=== PATIENT | male | born 1970 | race Caucasian/White ===

== ENCOUNTER 2018-01-27 12:42 | Inpatient (IN) | payer OTHER ==
[2018-01-27] MEDS ORDERED: SODIUM CHLORIDE 0.9% 1,000 ML IV STA (12:48)
[2018-01-27] MEDS ORDERED: ASPIRIN 81 MG PO STA (12:49)
[2018-01-27] MEDS ORDERED: NITROGLYCERIN SL TABS 0.4 MG TAB SUBLINGUAL STA (12:49)
--- NOTE | 2018-01-27 13:00 | ED ---
General Adult HPI - General Source: patient, EMS, RN notes reviewed Mode of arrival: EMS Limitations: no limitations <Js Sanchez - Last Filed: 01/27/18 17:05> <Gallito Lee - Last Filed: 01/28/18 02:33> <Ryan Mcdowell - Last Filed: 01/28/18 06:36> - General Chief complaint: Psychiatric Symptoms Stated complaint: Chest Pain Time Seen by Provider: 01/27/18 12:42 - History of Present Illness Initial comments: This is a 46-year-old male with a history of 22 days of binge drinking at the fifth of liquor a day who was brought in by EMS after he apparently was kicked out of his car by his who is been arguing with he does admit to drinking at least 6 or 7 beers today he states is something wrong with his heart he is having some chest pain and palpitations. He has a cough he states he smokes cigars with cigarettes no prior history of heart disease no lung disease no other complaints. He is unable to quantify or qualify the symptoms he is having at this time. Patient does admit to being suicidal and depressed at this time. Definite plan (Js Sanchez) - Related Data Home Medications Medication Instructions Recorded Confirmed No Known Home Medications 01/27/18 01/27/18 Allergies Allergy/AdvReac Type Severity Reaction Status Date / Time No Known Allergies Allergy Verified 01/27/18 13:31 Review of Systems ROS Other: All systems not noted in ROS Statement are negative. <sJ Sanchez - Last Filed: 01/27/18 17:05> ROS Other: All systems not noted in ROS Statement are negative. <Gallito Lee - Last Filed: 01/28/18 02:33> ROS Other: All systems not noted in ROS Statement are negative. <Ryan Mcdowell - Last Filed: 01/28/18 06:36> ROS Statement: Those systems with pertinent positive or pertinent negative responses have been documented in the HPI. Past Medical History Additional Past Medical History / Comment(s): "enlarged heart," ETOH abuse History of Any Multi-Drug Resistant Organisms: None Reported Past Surgical History: Orthopedic Surgery Past Psychological History: Anxiety, Depression Smoking Status: Current some day smoker Past Alcohol Use History: Abuse, Daily Past Drug Use History: None Reported <Js Sanchez - Last Filed: 01/27/18 17:05> General Exam Limitations: no limitations General appearance: alert, anxious Head exam: Present: atraumatic, normocephalic, normal inspection Eye exam: Present: normal appearance, PERRL, EOMI. Absent: scleral icterus, conjunctival injection, periorbital swelling ENT exam: Present: normal exam, mucous membranes moist Neck exam: Present: normal inspection. Absent: tenderness, meningismus, lymphadenopathy Respiratory exam: Present: normal lung sounds bilaterally. Absent: respiratory distress, wheezes, rales, rhonchi, stridor Cardiovascular Exam: Present: regular rate, normal rhythm, normal heart sounds. Absent: systolic murmur, diastolic murmur, rubs, gallop, clicks GI/Abdominal exam: Present: soft, normal bowel sounds. Absent: distended, tenderness, guarding, rebound, rigid Extremities exam: Present: normal inspection, full ROM, normal capillary refill. Absent: tenderness, pedal edema, joint swelling, calf tenderness Back exam: Present: normal inspection Neurological exam: Present: alert, oriented X3, CN II-XII intact Psychiatric exam: Present: depressed, anxious, suicidal ideation Skin exam: Present: warm, dry, intact, normal color. Absent: rash <Js Sanchez - Last Filed: 01/27/18 17:05> <Gallito Lee - Last Filed: 01/28/18 02:33> <Ryan Mcdowell - Last Filed: 01/28/18 06:36> - General Exam Comments Initial Comments: This is a well-developed well-nourished awake alert oriented 3 male he is anxious with the smell of alcohol conjoiners on his breath (Js Sanchez) Course <Js Sanchez - Last Filed: 01/27/18 17:05> <Gallito Lee - Last Filed: 01/28/18 02:33> <Ryan Mcdowell - Last Filed: 01/28/18 06:36> Vital Signs 01/27/18 01/27/18 01/27/18 12:54 13:02 14:56 Temperature 98.5 F Pulse Rate 83 99 Pulse Rate [ 80 Radiological Technologist ] Respiratory 18 18 Rate Blood Pressure 181/97 131/77 O2 Sat by Pulse 99 97 Oximetry 01/27/18 01/27/18 01/27/18 16:51 17:51 18:35 Temperature Pulse Rate 98 90 90 Pulse Rate [ Radiological Technologist ] Respiratory 18 18 18 Rate Blood Pressure 131/86 123/72 108/75 O2 Sat by Pulse 96 97 95 Oximetry 01/27/18 01/27/18 01/27/18 19:21 20:21 21:13 Temperature Pulse Rate 96 88 93 Pulse Rate [ Radiological Technologist ] Respiratory 18 18 Rate Blood Pressure 126/91 122/67 138/71 O2 Sat by Pulse 99 96 97 Oximetry 01/27/18 01/27/18 01/28/18 22:51 23:51 04:07 Temperature 98.3 F Pulse Rate 90 74 109 H Pulse Rate [ Radiological Technologist ] Respiratory 18 18 Rate Blood Pressure 121/82 140/79 141/90 O2 Sat by Pulse 96 95 96 Oximetry 01/28/18 06:31 Temperature Pulse Rate 87 Pulse Rate [ Radiological Technologist ] Respiratory 20 Rate Blood Pressure 154/88 O2 Sat by Pulse 95 Oximetry Around 8 PM patient complain about the chest pain, EKG was done and troponin was repeated troponin is unremarkable and the EKG is normal sinus ventricular rate is 92 PA interval is 176 QRS duration is 84 QT/QTc is 346/427 review of this EKG does not reveal any STEMI Patient isn't endorsed to Dr. Mcdowell at term 2:34 AM him a he be sober at 5 AM at that point he needs to see EPS (Gallito Lee) - Reevaluation(s) Reevaluation #1: 01/27/18 17:05 The patient will be endorsed to Dr. Lee at our shift change. Patient is pending EPS evaluation after sobriety is attained (Js Sanchez) EKG Findings - EKG Results: EKG: interpreted by ERMD, sinus rhythm (EKG shows sinus rhythm with some sinus arrhythmia the rate was 96. Interval 202 QRS 82 QT since QTC 362/457) <Js Sanchez - Last Filed: 01/27/18 17:05> Medical Decision Making - Lab Data Result diagrams: 01/27/18 13:03 01/27/18 13:03 <Js Sanchez - Last Filed: 01/27/18 17:05> - Lab Data Result diagrams: 01/27/18 13:03 01/27/18 13:03 <Gallito Lee - Last Filed: 01/28/18 02:33> - Lab Data Result diagrams: 01/27/18 13:03 01/27/18 13:03 <Ryan Mcdowell - Last Filed: 01/28/18 06:36> - Medical Decision Making Patient was sent out to me by previous shift physician. Patient is a daily EtOH drinker. He was signed out to me with instructions for EPS evaluation because he said that he was suicidal. Patient also complained earlier that he is having chest pain. He had 2 sets of negative troponin, benign EKG and negative CTA. At this point we have ruled out emergent issues causing chest pain. Patient was cleared by EPS for discharge. He then became severely tachycardic, diaphoretic and tremulous. Patient drinks approximately a fifth of liquor a day. He is currently experiencing EtOH withdrawals. Patient be admitted. He is given Ativan. (Ryan Mcdowell) - Lab Data Lab Results 01/27/18 01/27/18 01/27/18 Range/Units 13:03 13:03 13:03 WBC 4.2 (3.8-10.6) k/uL RBC 4.91 (4.30-5.90) m/uL Hgb 14.5 (13.0-17.5) gm/dL Hct 43.4 (39.0-53.0) % MCV 88.4 (80.0-100.0) fL MCH 29.6 (25.0-35.0) pg MCHC 33.4 (31.0-37.0) g/dL RDW 15.6 H (11.5-15.5) % Plt Count 85 L (150-450) k/uL Neutrophils % 51 % Lymphocytes % 29 % Monocytes % 12 % Eosinophils % 2 % Basophils % 2 % Neutrophils # 2.2 (1.3-7.7) k/uL Lymphocytes # 1.2 (1.0-4.8) k/uL Monocytes # 0.5 (0-1.0) k/uL Eosinophils # 0.1 (0-0.7) k/uL Basophils # 0.1 (0-0.2) k/uL Manual Slide Review Performed PT (9.0-12.0) sec INR (<1.2) APTT (22.0-30.0) sec D-Dimer (<0.60) mg/L FEU Sodium 137 (137-145) mmol/L Potassium 4.1 (3.5-5.1) mmol/L Chloride 101 (98-107) mmol/L Carbon Dioxide 22 (22-30) mmol/L Anion Gap 14 mmol/L BUN 7 L (9-20) mg/dL Creatinine 0.73 (0.66-1.25) mg/dL Est GFR (CKD-EPI)AfAm >90 (>60 ml/min/1.73 sqM) Est GFR (CKD-EPI)NonAf >90 (>60 ml/min/1.73 sqM) Glucose 123 H (74-99) mg/dL Calcium 9.4 (8.4-10.2) mg/dL Magnesium 1.7 (1.6-2.3) mg/dL Total Bilirubin 0.9 (0.2-1.3) mg/dL AST 247 H (17-59) U/L ALT 212 H (21-72) U/L Alkaline Phosphatase 84 (38-126) U/L Total Creatine Kinase 218 H (55-170) U/L CK-MB (CK-2) 1.2 (0.0-2.4) ng/mL CK-MB (CK-2) Rel Index 0.6 Troponin I <0.012 (0.000-0.034) ng/mL Total Protein 7.5 (6.3-8.2) g/dL Albumin 4.5 (3.5-5.0) g/dL TSH 0.691 (0.465-4.680) mIU/L Urine Opiates Screen (NotDetected) Ur Oxycodone Screen (NotDetected) Urine Methadone Screen (NotDetected) Ur Propoxyphene Screen (NotDetected) Ur Barbiturates Screen (NotDetected) U Tricyclic Antidepress (NotDetected) Ur Phencyclidine Scrn (NotDetected) Ur Amphetamines Screen (NotDetected) U Methamphetamines Scrn (NotDetected) U Benzodiazepines Scrn (NotDetected) Urine Cocaine Screen (NotDetected) U Marijuana (THC) Screen (NotDetected) Serum Alcohol 387 mg/dL 01/27/18 01/27/18 01/27/18 Range/Units 13:03 13:03 19:02 WBC (3.8-10.6) k/uL RBC (4.30-5.90) m/uL Hgb (13.0-17.5) gm/dL Hct (39.0-53.0) % MCV (80.0-100.0) fL MCH (25.0-35.0) pg MCHC (31.0-37.0) g/dL RDW (11.5-15.5) % Plt Count (150-450) k/uL Neutrophils % % Lymphocytes % % Monocytes % % Eosinophils % % Basophils % % Neutrophils # (1.3-7.7) k/uL Lymphocytes # (1.0-4.8) k/uL Monocytes # (0-1.0) k/uL Eosinophils # (0-0.7) k/uL Basophils # (0-0.2) k/uL Manual Slide Review PT 9.8 (9.0-12.0) sec INR 1.0 (<1.2) APTT 21.4 L (22.0-30.0) sec D-Dimer 1.46 H (<0.60) mg/L FEU Sodium (137-145) mmol/L Potassium (3.5-5.1) mmol/L Chloride (98-107) mmol/L Carbon Dioxide (22-30) mmol/L Anion Gap mmol/L BUN (9-20) mg/dL Creatinine (0.66-1.25) mg/dL Est GFR (CKD-EPI)AfAm (>60 ml/min/1.73 sqM) Est GFR (CKD-EPI)NonAf (>60 ml/min/1.73 sqM) Glucose (74-99) mg/dL Calcium (8.4-10.2) mg/dL Magnesium (1.6-2.3) mg/dL Total Bilirubin (0.2-1.3) mg/dL AST (17-59) U/L ALT (21-72) U/L Alkaline Phosphatase (38-126) U/L Total Creatine Kinase (55-170) U/L CK-MB (CK-2) (0.0-2.4) ng/mL CK-MB (CK-2) Rel Index Troponin I <0.012 (0.000-0.034) ng/mL Total Protein (6.3-8.2) g/dL Albumin (3.5-5.0) g/dL TSH (0.465-4.680) mIU/L Urine Opiates Screen Not Detected (NotDetected) Ur Oxycodone Screen Not Detected (NotDetected) Urine Methadone Screen Not Detected (NotDetected) Ur Propoxyphene Screen Not Detected (NotDetected) Ur Barbiturates Screen Not Detected (NotDetected) U Tricyclic Antidepress Not Detected (NotDetected) Ur Phencyclidine Scrn Not Detected (NotDetected) Ur Amphetamines Screen Not Detected (NotDetected) U Methamphetamines Scrn Not Detected (NotDetected) U Benzodiazepines Scrn Not Detected (NotDetected) Urine Cocaine Screen Not Detected (NotDetected) U Marijuana (THC) Screen Not Detected (NotDetected) Serum Alcohol mg/dL Disposition <Js Sanchez - Last Filed: 01/27/18 17:05> <Gallito Lee - Last Filed: 01/28/18 02:33> Time of Disposition: 06:36 <Ryan Mcdowell - Last Filed: 01/28/18 06:36> Clinical Impression: Alcohol intoxication, Alcohol withdrawal Disposition: ADMITTED IP TO THIS HOSP Condition: Fair Referrals: None,Stated [Primary Care Provider] - 1-2 days
[2018-01-27 13:23] LABS: Basophils # (A) 0.1 k/uL (0-0.2); Basophils % (A) 2 %; Eosinophils # (A) 0.1 k/uL (0-0.7); Eosinophils % (A) 2 %; HCT 43.4 % (39.0-53.0); HGB 14.5 gm/dL (13.0-17.5); Lymphocytes # (A) 1.2 k/uL (1.0-4.8); Lymphocytes % (A) 29 %; MCH 29.6 pg (25.0-35.0); MCHC 33.4 g/dL (31.0-37.0); MCV 88.4 fL (80.0-100.0); Mean Platelet Volume 6.5; Monocytes # (A) 0.5 k/uL (0-1.0); Monocytes % (A) 12 %; Neutrophils # (A) 2.2 k/uL (1.3-7.7); Neutrophils % (A) 51 %; RBC 4.91 m/uL (4.30-5.90); RDW 15.6 % (11.5-15.5); WBC 4.2 k/uL (3.8-10.6)
[2018-01-27 13:27] LABS: ALT 212 U/L (21-72); AST 247 U/L (17-59); Albumin 4.5 g/dL (3.5-5.0); Alkaline Phosphatase 84 U/L (38-126); Anion Gap 14 mmol/L; Blood Urea Nitrogen 7 mg/dL (9-20); Calcium 9.4 mg/dL (8.4-10.2); Carbon Dioxide 22 mmol/L (22-30); Chloride 101 mmol/L (98-107); Glucose 123 mg/dL (74-99); Magnesium 1.7 mg/dL (1.6-2.3); Potassium 4.1 mmol/L (3.5-5.1); Sodium 137 mmol/L (137-145); Total Bilirubin 0.9 mg/dL (0.2-1.3); Total Protein 7.5 g/dL (6.3-8.2)
--- NOTE | 2018-01-27 13:27 | XR ---
EXAMINATION TYPE: XR chest 2V DATE OF EXAM: 01/27/2018 COMPARISON: NONE HISTORY: Dysrhythmia per order. Chest pain. TECHNIQUE: Frontal and lateral views of the chest are obtained. FINDINGS: There is no focal air space opacity, pleural effusion, or pneumothorax seen. The cardiac silhouette size is within normal limits. The osseous structures are intact. IMPRESSION: No acute cardiopulmonary process.
[2018-01-27 13:33] LABS: Amphetamine Screen,Urine Not Detected (NotDetected); Barbiturate Screen,Urine Not Detected (NotDetected); Benzodiazepines Screen,Urine Not Detected (NotDetected); Cocaine Screen,Urine Not Detected (NotDetected); Methadone Screen, Urine Not Detected (NotDetected); Opiate Screen,Urine Not Detected (NotDetected); Oxycodone Screen, Urine Not Detected (NotDetected); Phencyclidine Screen,Urine Not Detected (NotDetected); Tricyclic Antidepressant,Urine Not Detected (NotDetected); Urn Cannabinoid Scrn Not Detected (NotDetected)
[2018-01-27 13:34] LABS: Prothrombin Time 9.8 sec (9.0-12.0)
[2018-01-27 13:35] LABS: Alcohol 387 mg/dL
[2018-01-27 13:42] LABS: Creatine Kinase 218 U/L (55-170)
[2018-01-27 13:48] LABS: Platelet Count 85 k/uL (150-450)
[2018-01-27 13:52] LABS: D-Dimer 1.46 mg/L FEU (<0.60); Partial Thromboplastin Time 21.4 sec (22.0-30.0)
[2018-01-27 13:55] LABS: Creatine Kinase MB 1.2 ng/mL (0.0-2.4); Troponin I <0.012 ng/mL (0.000-0.034)
--- NOTE | 2018-01-27 15:18 | CT ---
EXAMINATION TYPE: CT angio chest DATE OF EXAM: 01/27/2018 COMPARISON: NONE HISTORY: chest pain/sob CT DLP: 247.9 mGycm. Automated Exposure Control for Dose Reduction was Utilized. CONTRAST: CTA scan of the thorax is performed with IV Contrast, patient injected with 100 mL of Isovue 370, pul monary embolism protocol. MIP Images are created on CT scanner and reviewed. FINDINGS: LUNGS: There is mild centrilobular and paraseptal emphysematous change. The lungs are grossly clear, there is no concerning parenchymal mass or nodule identified. Bilateral peribronchial cuffing is pre sent most pronounced centrally. There is no pleural effusion or pneumothorax seen. The tracheobronch ial tree is patent. MEDIASTINUM: There is satisfactory enhancement of the pulmonary artery and its branches, there is no CT evidence for pulmonary embolism. There are no greater than 1 cm hilar or mediastinal lymph nodes. No cardiomegaly or pericardial effusion is seen. Coronary artery calcifications are present, a mar ker of coronary artery disease. OTHER: Hepatic parenchyma is diffusely hypoattenuated in comparison to that of the spleen, most commo nly seen in hepatic steatosis. This finding limits evaluation for hepatic masses. No gross evidence o f hepatic mass is seen. No intrahepatic biliary ductal dilatation. There is asymmetric retroareolar p robable gynecomastia, left greater than right. Sternal deformity may be from prior injury. No acute f racture seen. Multilevel mild degenerative change of the thoracic spine is noted. IMPRESSION: 1. No evidence of pulmonary embolism. 2. Bilateral peribronchial cuffing in a background of mild emphysema. Therefore this could be reactiv e in the setting of chronic obstructive pulmonary disease or other infectious etiology such as bronch itis. No focal consolidation to suggest pneumonia. 3. Hepatic steatosis, at least moderate in degree.
[2018-01-27] MEDS ORDERED: MORPHINE SULFATE 2 MG/ML SYRINGE IVP STA (18:51)
[2018-01-27] MEDS ORDERED: PANTOPRAZOLE 40 MG/10 ML VIAL IVP STA (18:51)
[2018-01-27] MEDS ORDERED: NICOTINE 7MG/24HR PATCH TRANSDERM STA (20:17)
[2018-01-28] MEDS ORDERED: LORazepam 1 MG TAB PO STA (01:33)
[2018-01-28] MEDS ORDERED: MAG HYDROX/AL HYDROX/SIMETH 30 ML, HYOSCYAMINE ELIXIR 10 ML, CIMETIDINE HCL 300 MG, LID... PO STA ×4 (01:34)
[2018-01-28] MEDS ORDERED: LORazepam 2 MG/ML INJ IV STA (06:33)
[2018-01-28] MEDS ORDERED: NALOXONE 0.4 MG/ML 1 ML VIAL IV PRN ×2 (06:40→10:16)
[2018-01-28] MEDS ORDERED: THIAMINE 100 MG/ML 2 ML VIAL IM STA (06:41)
[2018-01-28] MEDS ORDERED: LORazepam 2 MG/ML INJ IV PRN (06:41)
[2018-01-28] MEDS: LORazepam 2 MG/ML INJ IV PRN ×3 (09:11→18:18)
[2018-01-28] MEDS ORDERED: MAG HYDROX/AL HYDROX/SIMETH 30 ML CUP PO PRN (10:21)
--- NOTE | 2018-01-28 12:14 | P.HPIM ---
History of Present Illness H&P Date: 01/28/18 Chief Complaint: chest pain Patient is a 47-year-old male past medical history of alcohol abuse and prior tobacco abuse who presented to the emergency department complaining of chest discomfort. Patient was seen and examined in the emergency department. He initially was found to be intoxicated with blood alcohol level of 398. He was observed in the emergency department to ensure sobriety. During that time he developed chest pain. He underwent 2 sets of troponins both of which were negative, and an EKG which showed no acute ischemia. During his time of monitoring in the ER he began to so symptoms of withdrawal. He was started on Ativan. His initial laboratory analysis showed thrombocytopenia with platelets of 85. His d-dimer was positive at 1.46 and he subsequently underwent a CT of the chest which was negative for PE. He was noted to have mildly elevated liver enzymes with an AST of 247, ALT 212, and total bilirubin 0.9. CT of the chest did demonstrate hepatic steatosis. With his worsening alcohol withdrawal the ER requested admission. Patient seen and examined at bedside. He states that he started drinking approximately 6 weeks ago. He drinks 1/5 of liquor daily and 4 20 ounce beers. He states he started drinking after his parents within 40 days of each other. He reports that he has been drinking to try to cover up his depression and that he has felt suicidal. He states that he started having chest tightness. He describes it is a retrosternal medical the anterior chest. It is associated with shortness of breath, nausea, and diaphoresis. He does not feel lightheaded and denies any numbness and tingling at that time but states he has now developed chronic right hand numbness. He reports that he has had several episodes of syncope due to drinking. He decided to present to the ER yesterday as his chest pain increased. He is unable to definitively tell me whether he started having chest pain before or after he started drinking excessively 6 weeks ago. 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 He states the chest pain waxes and wanes, he is unsure what helps the chest pain. He also complains of a lesion on his right hip that he fell yesterday. He states he's been urinating more frequently. He denies any recent cough, cold, fever, flu, nausea, or vomiting. He states that he has withdrawn multiple times from alcohol. One time he states his dad needed to revive him with CPR. He reports that he has been on the ventilator in the past for alcohol withdrawal, it is unclear whether he has had seizures or simply tremors of prior alcohol withdrawal. Review of Systems Pertinent positives and negatives as discussed in HPI, a complete review of systems was performed and all other systems are negative. Past Medical History Past Medical History: Chest Pain / Angina, GERD/Reflux Additional Past Medical History / Comment(s): Cardiomegaly- denies to physician , ETOH abuse, gastric ulcer, arthritis bilateral legs, occasional low back pain , mononucleosis as teen. History of Any Multi-Drug Resistant Organisms: None Reported Past Surgical History: Orthopedic Surgery Additional Past Surgical History / Comment(s): EGD, R foot surgery after fracture. 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 Medications and Allergies Home Medications Medication Instructions Recorded Confirmed Type No Known Home Medications 01/27/18 01/27/18 History Allergies Allergy/AdvReac Type Severity Reaction Status Date / Time No Known Allergies Allergy Verified 01/27/18 13:31 Physical Exam Osteopathic Statement: *. No significant issues noted on an osteopathic structural exam other than those noted in the History and Physical/Consult. Vitals: Vital Signs Temp Pulse Pulse Resp BP Pulse Ox 01/28/18 09:14 98 F 101 H 18 159/87 98 01/28/18 06:31 87 20 154/88 95 01/28/18 04:07 98.3 F 109 H 18 141/90 96 01/27/18 23:51 74 18 140/79 95 01/27/18 22:51 90 18 121/82 96 01/27/18 21:13 93 18 138/71 97 01/27/18 20:21 88 18 122/67 96 01/27/18 19:21 96 18 126/91 99 01/27/18 18:35 90 18 108/75 95 01/27/18 17:51 90 18 123/72 97 01/27/18 16:51 98 18 131/86 96 01/27/18 14:56 99 18 131/77 97 01/27/18 13:02 80 01/27/18 12:54 98.5 F 83 18 181/97 99 General: Ill appearing, mild distress, appears at stated age, normal weight Derm: Pressure ulcer with transformation over right posterior femoral head area , multiple areas of bruising in various stages of healing, warm, dry Head: atraumatic, normocephalic, symmetric Eyes: EOMI, no lid lag, anicteric sclera, pupils equal round reactive to light ENT: Nose and ears atraumatic, no thrush, no pharyngeal erythema Neck: No thyromegaly, no cervical lymphadenopathy, trachea midline, supple Mouth: no lip lesion, mucus membranes moist Cardiovascular: S1 and S2 tachycardic, no murmur, positive posterior tibial pulse bilateral, no edema, capillary refill less than 2 seconds Lungs: CTA bilateral, no rhonchi, no rales , no accessory muscle use Abdominal: soft, nontender to palpation, no guarding, no appreciable organomegaly, normal bowel sounds Ext: no gross muscle atrophy, muscle strength 5 out of 5 in all 4 extremities grossly, no contractures, Neuro: CN II-XI grossly intact, light touch intact all 4 extremities, finger to nose within normal limits, + tremors Psych: Alert, oriented, appropriate affect Results CBC & Chem 7: 01/27/18 13:03 01/27/18 13:03 Labs: Abnormal Lab Results - Last 24 Hours (Table) 01/27/18 01/27/18 01/27/18 Range/Units 13:03 13:03 13:03 RDW 15.6 H (11.5-15.5) % Plt Count 85 L (150-450) k/uL APTT (22.0-30.0) sec D-Dimer (<0.60) mg/L FEU BUN 7 L (9-20) mg/dL Glucose 123 H (74-99) mg/dL AST 247 H (17-59) U/L ALT 212 H (21-72) U/L Total Creatine Kinase 218 H (55-170) U/L 01/27/18 Range/Units 13:03 RDW (11.5-15.5) % Plt Count (150-450) k/uL APTT 21.4 L (22.0-30.0) sec D-Dimer 1.46 H (<0.60) mg/L FEU BUN (9-20) mg/dL Glucose (74-99) mg/dL AST (17-59) U/L ALT (21-72) U/L Total Creatine Kinase (55-170) U/L Comments: 2 EKG reviewed no signs of acute ischemia Chest x-ray: report reviewed CT scan - chest: report reviewed Thrombosis Risk Factor Assmnt - DVT/VTE Prophylaxis DVT/VTE Prophylaxis: Low risk, early ambulation encouraged - Choose All That Apply Any of the Below Risk Factors Present?: Yes Other Risk Factors: Yes Other congenital or acquired thrombophilia - If yes, enter type in comment: No Assessment and Plan Assessment: Acute alcohol withdrawal -Start Librium -[facility] protocol -Folic acid and thiamine supplementation -Seizure precuations Suicidal ideation -Suicide precautions and bedside sitter -Consult psychiatry Chest pain, suspect likely abdominal pain with history of gastric ulcer -Troponin negative, EKG negative- acute coronary syndrome ruled out -Suspect likely secondary to alcoholic gastritis - Will consult cardiology in AM if still having chest pain as patient is unsure whether the chest pain occurred before or after he started consuming excessive amounts of alcohol Thrombocytopenia along with elevated liver enzymes -Suspect secondary to alcohol hepatitis -Check liver ultrasound -Check hepatitis profile -Repeat CMP in a.m. Pressure ulcer right hip -Apply barrier cream daily -Frequent turns and offloading The patient is placed in observation with an anticipated less than 2 per night stay for evaluation of chest pain and alcohol withdrawal. Surrogate decision-maker: Sister breath CODE STATUS:Full by default DVT prophylaxis: Early ambulation Discussed with: Patient, nursing Anticipated discharge date: 01/[address]: home vs psych A total of 65 minutes was spent on the care of this complex patient more than 50 % of the time was spent in counseling and care coordination.
--- NOTE | 2018-01-28 15:25 | P.PN ---
Progress Note - Text Progress Note Date: 01/28/18 I went to see the patient to do a psychiatric consultation however the patient was sound asleep and was not able to be awakened to do the consult. Patient apparently presented to the emergency room yesterday intoxicated with a blood alcohol level of 398 as well as complaining of chest pain. Patient's liver enzymes are also elevated. Patient had been seen by EPS in the emergency room where he denied any suicidal or homicidal ideation however today the nurse on the medical floor states that the patient is voicing suicidal thoughts stating that he wanted to drink himself to since the last month of his mother and stepfather. She also reported that the patient stated that he had had guns in the house and was afraid that he may use them. Nursing staff was asked to contact the psychiatric unit when the patient was more alert and able to participate in an interview. Patient will be maintained on one-to-one suicide precautions until assessed by psychiatry.
[2018-01-28] MEDS: THIAMINE 100 MG TAB PO SCH (18:16)
[2018-01-28] MEDS: PANTOPRAZOLE 40 MG/10 ML VIAL IV SCH (21:27)
[2018-01-29] MEDS: LORazepam 2 MG/ML INJ IV PRN ×2 (04:51→19:49)
[2018-01-29 07:06] LABS: Anisocytosis Slight; HGB 14.5 gm/dL (13.0-17.5); MCHC 33.6 g/dL (31.0-37.0); MCV 89.1 fL (80.0-100.0); Mean Platelet Volume 7.5; RBC 4.83 m/uL (4.30-5.90); RDW 16.3 % (11.5-15.5); WBC 3.5 k/uL (3.8-10.6)
[2018-01-29 07:10] LABS: Platelet Count 65 k/uL (150-450)
[2018-01-29 07:22] LABS: ALT 158 U/L (21-72); AST 166 U/L (17-59); Albumin 3.9 g/dL (3.5-5.0); Alkaline Phosphatase 83 U/L (38-126); Anion Gap 6 mmol/L; Blood Urea Nitrogen 7 mg/dL (9-20); Calcium 9.6 mg/dL (8.4-10.2); Carbon Dioxide 29 mmol/L (22-30); Chloride 103 mmol/L (98-107); Glucose 95 mg/dL (74-99); Magnesium 1.7 mg/dL (1.6-2.3); Potassium 4.3 mmol/L (3.5-5.1); Sodium 138 mmol/L (137-145); Total Bilirubin 1.4 mg/dL (0.2-1.3); Total Protein 6.7 g/dL (6.3-8.2)
[2018-01-29] MEDS: PANTOPRAZOLE 40 MG/10 ML VIAL IV SCH ×2 (09:09→20:34)
[2018-01-29] MEDS: FOLIC ACID 1 MG TAB PO SCH (09:10)
[2018-01-29] MEDS: THIAMINE 100 MG TAB PO SCH ×2 (09:10→16:55)
--- NOTE | 2018-01-29 12:14 | US ---
EXAMINATION TYPE: US liver DATE OF EXAM: 01/29/2018 COMPARISON: NONE CLINICAL HISTORY: elevated liver enzymes. EXAM MEASUREMENTS: Liver Length: 16.1 cm Gallbladder Wall: 0.2 cm CBD: 0.4 cm Right Kidney: 10.8 x 4.2 x 5.4 cm Limited due to bowel gas. Pancreas: Tail obscured by overlying bowel gas Liver: Increased attenuation, decreased visualization of vessels suggestive of fatty infiltrate Gallbladder: Sludge noticed in dependent portions of gallbladder Evidence for sonographic Shetty's sign: No CBD: wnl Right Kidney: wnl Limited views of the pancreas are unremarkable. The liver is normal in size without evidence of biliary dilatation. It is echogenic and may be fatty infiltrated. There is some sludge within the gallbladder. The gallbladder wall is not thickened measuring 2 mm. Th e distal common hepatic duct measures 4 mm. There is no sonographic Shetty's sign. The right kidney is unremarkable. IMPRESSION: 1. PROBABLE FATTY INFILTRATION OF THE LIVER. 2. GALLBLADDER SLUDGE.
[2018-01-29] MEDS: NICOTINE 21MG/24HR PATCH TRANSDERM SCH (12:23)
[2018-01-29] MEDS: HYDROcodone/APAP 5-325MG 1 EACH TAB PO PRN (13:33)
[2018-01-29 14:03] VITALS: BMI 25.8
--- NOTE | 2018-01-29 15:34 | P.PN ---
Subjective Progress Note Date: 01/29/18 Principal diagnosis: chest pain Patient is a 47-year-old male past medical history of alcohol abuse and prior tobacco abuse who presented to the emergency department complaining of chest discomfort. Patient was seen and examined in the emergency department. He initially was found to be intoxicated with blood alcohol level of 398. He was observed in the emergency department to ensure sobriety. During that time he developed chest pain. He underwent 2 sets of troponins both of which were negative, and an EKG which showed no acute ischemia. During his time of monitoring in the ER he began to so symptoms of withdrawal. He was started on Ativan. His initial laboratory analysis showed thrombocytopenia with platelets of 85. His d-dimer was positive at 1.46 and he subsequently underwent a CT of the chest which was negative for PE. He was noted to have mildly elevated liver enzymes with an AST of 247, ALT 212, and total bilirubin 0.9. CT of the chest did demonstrate hepatic steatosis. With his worsening alcohol withdrawal the ER requested admission. He was subsequently admitted to the general medical floor. He was found have probable alcoholic hepatitis and alcoholic gastritis. He was started on a PPI his feet well was continued. Librium was added. His troponins remained negative. His pain was in one spot near a lump on his chest wall appeared to be musculoskeletal in origin. He is being evaluated by psychiatry for suicidal ideation. Patient seen and examined at bedside. He states that his withdrawal symptoms are getting worse and he is feeling more shaky. He also states his nicotine withdrawal is getting worse. He complains of chest pain that is now on his left anterior chest just below the clavicle with a clear palpable area of bony protuberance. He states that his nausea is better and his stomach hurts less today. He denies any diarrhea. Bedside sitter present. Objective - Vital Signs Vital signs: Vital Signs Temp 97.7 F 01/29/18 06:47 Pulse 97 01/29/18 06:47 Resp 16 01/29/18 06:47 BP 142/93 01/29/18 06:47 Pulse Ox 94 L 01/29/18 06:47 Intake & Output 01/28/18 01/29/18 01/29/18 18:59 06:59 18:59 Intake Total 590 Balance 590 Weight 77.111 kg Intake: Oral 590 Other: Voiding Method Toilet Toilet Toilet # Voids 2 2 # Bowel Movements 1 - Exam General: non toxic, mild distress, appears at stated age Derm: warm, dry Head: atraumatic, normocephalic, symmetric Eyes: EOMI, no lid lag, anicteric sclera Mouth: no lip lesion, mucus membranes moist Cardiovascular: S1S2 reg, no murmur, positive posterior tibial pulse bilateral, tenderness to palpation over left chest wall protuberance Lungs: Decreased breath sounds bilateral bases, no rhonchi, no rales , no accessory muscle use Abdominal: soft, nontender to palpation, no guarding, no appreciable organomegaly Ext: no gross muscle atrophy, no edema, no contractures Neuro: CN II-XI grossly intact, no focal neuro deficits + tremors Psych: Alert, oriented, appropriate affect - Labs CBC & Chem 7: 01/29/18 06:33 08 06:33 Labs: Abnormal Lab Results - Last 24 Hours (Table) 01/29/18 01/29/18 Range/Units 06:33 06:33 WBC 3.5 L (3.8-10.6) k/uL RDW 16.3 H (11.5-15.5) % Plt Count 65 L (150-450) k/uL BUN 7 L (9-20) mg/dL Total Bilirubin 1.4 H (0.2-1.3) mg/dL AST 166 H (17-59) U/L ALT 158 H (21-72) U/L Assessment and Plan Assessment: Acute alcohol withdrawal -Librium -[facility] protocol -Folic acid and thiamine supplementation -Seizure precuations Suicidal ideation -Suicide precautions and bedside sitter -Await psychiatry recommendations Chest wall pain -Palpable mass clearly associated with rib as seen on CT which appears to be an old healed rib fracture -When necessary pain medications -Acute coronary syndrome ruled out with negative troponins and normal EKG Alcoholic gastritis -Continue PPI Transaminitis due to alcoholic hepatitis -Liver ultrasound with fatty infiltration of the liver -Acute hepatitis profile pending Thrombocytopenia -Suspect secondary to alcoholic liver disease -Repeat CBC in a.m. Pressure ulcer right hip -Apply barrier cream daily -Frequent turns and offloading Tobacco abuse -Cessation -Nicotine replacement DVT prophylaxis: Early ambulation Discussed with: Patient, nursing Anticipated discharge date: 01/[address]: home vs psych A total of 25 minutes was spent on the care of this complex patient more than 50 % of the time was spent in counseling and care coordination.
[2018-01-29 18:00] LABS: Hepatitis A Antibody IgM Non-Reactive (Non-Reactive); Hepatitis B Core IgM Non-Reactive (Non-Reactive)
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
[2018-01-30 07:52] LABS: HCT 42.6 % (39.0-53.0); HGB 14.6 gm/dL (13.0-17.5); MCH 30.4 pg (25.0-35.0); MCHC 34.4 g/dL (31.0-37.0); MCV 88.4 fL (80.0-100.0); Mean Platelet Volume 8.6; RBC 4.82 m/uL (4.30-5.90); RDW 15.6 % (11.5-15.5)
[2018-01-30 08:01] LABS: ALT 267 U/L (21-72); AST 443 U/L (17-59); Alkaline Phosphatase 94 U/L (38-126); Anion Gap 8 mmol/L; Blood Urea Nitrogen 8 mg/dL (9-20); Calcium 9.4 mg/dL (8.4-10.2); Carbon Dioxide 25 mmol/L (22-30); Chloride 104 mmol/L (98-107); Glucose 102 mg/dL (74-99); Potassium 4.5 mmol/L (3.5-5.1); Sodium 137 mmol/L (137-145); Total Bilirubin 1.6 mg/dL (0.2-1.3); Total Protein 6.8 g/dL (6.3-8.2)
[2018-01-30 08:06] LABS: Platelet Count 76 k/uL (150-450)
[2018-01-30] MEDS: NICOTINE 21MG/24HR PATCH TRANSDERM SCH (08:32)
[2018-01-30] MEDS: PANTOPRAZOLE 40 MG/10 ML VIAL IV SCH ×2 (08:32→20:39)
[2018-01-30] MEDS: LORazepam 2 MG/ML INJ IV PRN ×3 (08:47→15:01)
[2018-01-30] MEDS: HYDROcodone/APAP 5-325MG 1 EACH TAB PO PRN ×2 (10:46→20:40)
[2018-01-30] MEDS: FOLIC ACID 1 MG TAB PO SCH (12:48)
[2018-01-30] MEDS: THIAMINE 100 MG TAB PO SCH ×2 (12:48→16:13)
--- NOTE | 2018-01-30 13:09 | P.PN ---
Subjective Progress Note Date: 01/30/18 Principal diagnosis: chest pain Patient is a 47-year-old male past medical history of alcohol abuse and prior tobacco abuse who presented to the emergency department complaining of chest discomfort. Patient was seen and examined in the emergency department. He initially was found to be intoxicated with blood alcohol level of 398. He was observed in the emergency department to ensure sobriety. During that time he developed chest pain. He underwent 2 sets of troponins both of which were negative, and an EKG which showed no acute ischemia. During his time of monitoring in the ER he began to so symptoms of withdrawal. He was started on Ativan. His initial laboratory analysis showed thrombocytopenia with platelets of 85. His d-dimer was positive at 1.46 and he subsequently underwent a CT of the chest which was negative for PE. He was noted to have mildly elevated liver enzymes with an AST of 247, ALT 212, and total bilirubin 0.9. CT of the chest did demonstrate hepatic steatosis. With his worsening alcohol withdrawal the ER requested admission. He was subsequently admitted to the general medical floor. He was found have probable alcoholic hepatitis and alcoholic gastritis. He was started on a PPI his feet well was continued. Librium was added. His troponins remained negative. His pain was in one spot near a lump on his chest wall appeared to be musculoskeletal in origin. He is being evaluated by psychiatry for suicidal ideation cleared for discharge by psychiatry and they recommend outpatient substance abuse. Discussed with patient need to call on 01/31 for possible spot. Patient seen and examined at bedside. Still with an upset stomach, nausea decreasing. Still complains of tremor. Still having pain on left chest wall. States his [place] is helping. No vomiting. Feels as though he is still having withdrawal symptoms despite IV Ativan and Librium. Objective - Vital Signs Vital signs: Vital Signs Temp 97.4 F L 01/30/18 05:31 Pulse 96 01/30/18 10:48 Resp 16 01/30/18 10:48 BP 121/82 01/30/18 05:31 Pulse Ox 96 01/30/18 05:31 Intake & Output 01/29/18 01/30/18 01/30/18 18:59 06:59 18:59 Intake Total 1000 220 480 Balance 1000 220 480 Weight 77.111 kg Intake: Oral 1000 220 480 Other: Voiding Method Toilet Toilet Toilet # Voids 3 2 - Exam General: non toxic, mild distress, appears at stated age Derm: warm, dry Head: atraumatic, normocephalic, symmetric Eyes: EOMI, no lid lag, anicteric sclera Mouth: no lip lesion, mucus membranes moist Cardiovascular: S1S2 reg, no murmur, positive posterior tibial pulse bilateral, tenderness to palpation over left chest wall protuberance Lungs: Decreased breath sounds bilateral bases, no rhonchi, no rales , no accessory muscle use Abdominal: soft, nontender to palpation, no guarding, no appreciable organomegaly Ext: no gross muscle atrophy, no edema, no contractures Neuro: CN II-XI grossly intact, no focal neuro deficits + tremors Psych: Alert, oriented, appropriate affect - Labs CBC & Chem 7: 01/30/18 07:34 01/30/18 07:34 Labs: Abnormal Lab Results - Last 24 Hours (Table) 01/30/18 01/30/18 Range/Units 07:34 07:34 RDW 15.6 H (11.5-15.5) % Plt Count 76 L (150-450) k/uL BUN 8 L (9-20) mg/dL Glucose 102 H (74-99) mg/dL Total Bilirubin 1.6 H (0.2-1.3) mg/dL AST 443 H (17-59) U/L ALT 267 H (21-72) U/L Assessment and Plan Assessment: Acute alcohol withdrawal -Librium -[facility] protocol -Folic acid and thiamine supplementation -Seizure precuations Chest wall pain -Palpable mass clearly associated with rib as seen on CT which appears to be an old healed rib fracture -When necessary pain medications -Acute coronary syndrome ruled out with negative troponins and normal EKG Alcoholic gastritis -Continue PPI Transaminitis due to alcoholic hepatitis -Liver ultrasound with fatty infiltration of the liver -Acute hepatitis profile negative -Elevating the morning of 12 will repeat levels in a.m. If continued elevated consider GI consultation. Thrombocytopenia -Suspect secondary to alcoholic liver disease -Repeat CBC in a.m. Pressure ulcer right hip -Apply barrier cream daily -Frequent turns and offloading Tobacco abuse -Cessation -Nicotine replacement Suicidal ideation - cleared by [facility] and recommended substance abuse program. DVT prophylaxis: Early ambulation Discussed with: Patient, nursing Anticipated discharge date: 24-[address]: home A total of 25 minutes was spent on the care of this complex patient more than 50 % of the time was spent in counseling and care coordination.
[2018-01-31] MEDS: PANTOPRAZOLE 40 MG/10 ML VIAL IV SCH ×2 (08:47→20:36)
[2018-01-31] MEDS: FOLIC ACID 1 MG TAB PO SCH (08:48)
[2018-01-31] MEDS: THIAMINE 100 MG TAB PO SCH ×2 (08:48→17:33)
[2018-01-31] MEDS: NICOTINE 21MG/24HR PATCH TRANSDERM SCH (08:52)
[2018-01-31] MEDS: HYDROcodone/APAP 5-325MG 1 EACH TAB PO PRN ×3 (09:05→20:39)
[2018-02-01] MEDS: NICOTINE 21MG/24HR PATCH TRANSDERM SCH (07:53)
[2018-02-01] MEDS: HYDROcodone/APAP 5-325MG 1 EACH TAB PO PRN ×4 (07:53→22:16)
[2018-02-01] MEDS: PANTOPRAZOLE 40 MG TABLET PO SCH ×2 (09:07→17:19)
--- NOTE | 2018-02-01 12:55 | P.PN ---
Subjective No new events overnight no complaints. He's been doing much better. No sweats nausea vomiting or any significant tremor. Tolerating diet well no anxiety. REVIEW OF SYSTEMS: CONSTITUTIONAL: No fever or chills HEENT: No changes in vision or voice CARDIOVASCULAR: no chest pain or abnormal heart beats, or any swelling in ankles or feet. RESPIRATORY: No wheezing or coughing. GASTROINTESTINAL: No abdominal pain, no nausea no vomiting no constipation or diarrhea GENITOURINARY: no any urinary urgency, frequency or burning, and there has been no blood in her urine. no flank pain. MUSCULOSKELETAL: notes full range of motion of all her joints without pain or swelling. NEUROLOGICAL: , no headache. no vision changes, or fainting. No numbness or tingling. Objective - Vital Signs Vital signs: Vital Signs Temp 97.9 F 02/01/18 05:00 Pulse 81 02/01/18 05:00 Resp 16 02/01/18 05:00 BP 107/63 02/01/18 05:00 Pulse Ox 99 02/01/18 05:00 Intake & Output 01/31/18 02/01/18 02/01/18 18:59 06:59 18:59 Intake Total 1140 Balance 1140 Intake: Oral 1140 Other: Voiding Method Toilet Toilet Toilet # Voids 3 1 # Bowel Movements 2 - Exam General: No distress. Oriented x 3, normal mood and affect . Ambulating without difficulty. HEENT: Head: Normocephalic, atraumatic, no visible or palpable masses, depressions, or scaring, conjunctiva clear, sclera non-icteric, EOM intact, PERRL Oral: Mucous membranes moist, no mucosal lesions. Pharynx: Mucosa non-inflamed, no tonsillar hypertrophy or exudate Neck: Supple, without lesions, bruits, or adenopathy, thyroid non-enlarged and non-tender Heart: No cardiomegaly or thrills; regular rate and rhythm, no murmur or gallop Lungs: Clear to auscultation and percussion Abdomen: Bowel sounds normal, no tenderness, organomegaly, masses, or hernia Back: Spine normal without deformity or tenderness, no CVA tenderness Extremities: No amputations or deformities, cyanosis, edema or varicosities, peripheral pulses intact Musculoskeletal: No peripheral joint swelling, pain, erythema. No clubbing Skin: Good turgor, no rash, unusual bruising or prominent lesions Neurologic: CN 2-12 normal. Motor strength is 5 out of 5 in upper and lower extremities proximally and distally, no asterixis, no tremor Psychiatric: Oriented X3, intact recent and remote memory, judgment and insight , normal mood and affect. - Labs CBC & Chem 7: 01/30/18 07:34 01/30/18 07:34 Assessment and Plan (1) Alcohol withdrawal Narrative/Plan: This has been improving Table for discharge once placement is available Current Visit: Yes Status: Acute Code(s): F10.239 - ALCOHOL DEPENDENCE WITH WITHDRAWAL, UNSPECIFIED SNOMED Code(s): 316369825 (2) Alcoholic liver disease Narrative/Plan: Liver enzymes have been fluctuating Slight decreased his morning Repeat in a.m. next line avoidance of alcohol advised Ultrasound results reviewed No hyperbilirubinemia Recommend vaccination against hepatitis a and B on outpatient basis Current Visit: Yes Status: Acute Code(s): K70.9 - ALCOHOLIC LIVER DISEASE, UNSPECIFIED SNOMED Code(s): 40455936 (3) Thrombocytopenia Narrative/Plan: Related to toxic effects of alcohol Improving Current Visit: Yes Status: Acute Code(s): D69.6 - THROMBOCYTOPENIA, UNSPECIFIED SNOMED Code(s): 051333375 Plan: Patient has been generally improving He has a plan to go to residential alcohol treatment center Anticipate discharge tomorrow a.m. since patient does not have placement he does not have safe place to go and we cannot provide safe discharge today
--- NOTE | 2018-02-01 12:55 | P.PN ---
Subjective Patient hadn't much or less uneventful night. No nausea vomiting chest pain shortness of breath or diarrhea. ENT has been increasing and his withdrawal symptoms have been improving. The blood work this morning he has slight bump in his liver enzymes but otherwise platelet count has been improving REVIEW OF SYSTEMS: CONSTITUTIONAL: No fever or chills HEENT: No changes in vision or voice CARDIOVASCULAR: no chest pain or abnormal heart beats, or any swelling in ankles or feet. RESPIRATORY: No wheezing or coughing. GASTROINTESTINAL: No abdominal pain, no nausea no vomiting no constipation or diarrhea GENITOURINARY: no any urinary urgency, frequency or burning, and there has been no blood in her urine. no flank pain. MUSCULOSKELETAL: She notes full range of motion of all her joints without pain or swelling. NEUROLOGICAL: , no headache. no vision changes, or fainting. No numbness or tingling. Objective - Vital Signs Vital signs: Vital Signs Temp 97.6 F 01/31/18 05:15 Pulse 78 01/31/18 05:15 Resp 17 01/31/18 05:15 BP 115/81 01/31/18 05:15 Pulse Ox 98 01/31/18 05:15 Intake & Output 01/30/18 01/31/18 01/31/18 18:59 06:59 18:59 Intake Total 480 Balance 480 Weight 77.111 kg Intake: Oral 480 Other: Voiding Method Toilet Toilet Toilet # Voids 2 1 # Bowel Movements 1 - Exam General: No distress. Oriented x 3, normal mood and affect . Ambulating without difficulty. HEENT: Head: Normocephalic, atraumatic, no visible or palpable masses, depressions, or scaring, conjunctiva clear, sclera non-icteric, EOM intact, PERRL Oral: Mucous membranes moist, no mucosal lesions. Pharynx: Mucosa non-inflamed, no tonsillar hypertrophy or exudate Neck: Supple, without lesions, bruits, or adenopathy, thyroid non-enlarged and non-tender Heart: No cardiomegaly or thrills; regular rate and rhythm, no murmur or gallop Lungs: Clear to auscultation and percussion Abdomen: Bowel sounds normal, no tenderness, organomegaly, masses, or hernia Back: Spine normal without deformity or tenderness, no CVA tenderness Extremities: No amputations or deformities, cyanosis, edema or varicosities, peripheral pulses intact Musculoskeletal: No peripheral joint swelling, pain, erythema. No clubbing Skin: Good turgor, no rash, unusual bruising or prominent lesions Neurologic: CN 2-12 normal. Sensation to pain, touch, and proprioception normal. DTRs normal in upper and lower extremities. No pathologic reflexes. He has a mild Tremor Psychiatric: Oriented X3, intact recent and remote memory, judgment and insight , normal mood and affect. - Labs CBC & Chem 7: 01/30/18 07:34 01/30/18 07:34 Assessment and Plan (1) Alcohol withdrawal Narrative/Plan: This has been improving Continue [facility] protocol Increase activity and diet DC IV fluids Current Visit: Yes Status: Acute Code(s): F10.239 - ALCOHOL DEPENDENCE WITH WITHDRAWAL, UNSPECIFIED SNOMED Code(s): 608998201 (2) Alcoholic liver disease Narrative/Plan: Liver enzymes have been fluctuating Slight decreased his morning Repeat in a.m. next line avoidance of alcohol advised Ultrasound results reviewed No hyperbilirubinemia Current Visit: Yes Status: Acute Code(s): K70.9 - ALCOHOLIC LIVER DISEASE, UNSPECIFIED SNOMED Code(s): 64965509 (3) Thrombocytopenia Narrative/Plan: Related to toxic effects of alcohol Improving Current Visit: Yes Status: Acute Code(s): D69.6 - THROMBOCYTOPENIA, UNSPECIFIED SNOMED Code(s): 536639805 Plan: Patient has been generally improving He has a plan to go to residential alcohol treatment center Anticipate discharge tomorrow a.m.
[2018-02-01] MEDS: FOLIC ACID 1 MG TAB PO SCH (12:59)
[2018-02-01] MEDS: THIAMINE 100 MG TAB PO SCH ×2 (12:59→17:19)
[2018-02-02 06:02] VITALS: BP 106/70; PULSE 74; RESP 16; TEMP 98
[2018-02-02] MEDS: HYDROcodone/APAP 5-325MG 1 EACH TAB PO PRN (07:59)
[2018-02-02] MEDS: PANTOPRAZOLE 40 MG TABLET PO SCH (08:00)
--- NOTE | 2018-02-02 09:43 | P.DS ---
Providers Date of admission: 01/29/18 08:57 Attending physician: Mali Rueda MD Consults: 01/28/18 10:38 Consult Physician Routine Consulting Provider: Tiny Joseph Consult Reason/Comments: depression/suicdal Do you want consulting provider notified?: Already Contacted Primary care physician: Stated None - Discharge Diagnosis(es) (1) Alcohol withdrawal Patient was treated with CIWA protocol, IV fluids, multivitamins, close monitoring of electrolytes With above management his alcohol withdrawal symptoms slowly improved and he score was 0 on the day of discharge Current Visit: Yes Status: Acute (2) Alcoholic liver disease Liver enzymes remained stable Clinically no jaundiced throughout the stay Ultrasound of the liver showed hepatic steatosis to some degree Serologic workup for viral hepatitis was negative Patient was advised to avoid hepatotoxins including alcohol He is advised to follow-up with another blood work regarding his liver in 1-2 weeks Current Visit: Yes Status: Acute (3) Thrombocytopenia This was thought to be likely related to toxic effect of alcohol No signs of bleeding [place] tablet and improved It's advised to repeat CBC in 1 week and to obtain HIV testing Current Visit: Yes Status: Acute Hospital Course: Please see Dr. Goldman's H&P for the full details This is a 47-year-old male who has history of alcohol abuse and who came to emergency department initially complaining of chest discomfort. At that points he complained of some right- sided chest pain burning in nature. EKG was unremarkable and 2 sets of troponins were negative. CT of the chest was negative for pulmonary embolism. Blood work showed alcohol level of 398. While being observed emergency department patient started experiencing alcohol withdrawal and he was admitted for further management of this. He was also found to have AST of 247 and LT of 212 with total bilirubin of 0.9 and normal alkaline phosphatase. CT of the chest showed upper part of abdomen and liver changes consistent with hepatic steatosis. On the day of discharge patient was seen and examined. He was ambulated freely without difficulties in the room. There is no tremor nausea vomiting sweating or any other signs of withdrawal. He is CIWA score was 0 he did not require any benzodiazepines for the last 48 hours. Patient found placement at the [facility] REVIEW OF SYSTEMS: CONSTITUTIONAL: No fever or chills HEENT: No changes in vision or voice CARDIOVASCULAR: no chest pain or abnormal heart beats, or any swelling in ankles or feet. RESPIRATORY: No wheezing or coughing. GASTROINTESTINAL: No abdominal pain, no nausea no vomiting no constipation or diarrhea GENITOURINARY: no any urinary urgency, frequency or burning, and there has been no blood in her urine. no flank pain. MUSCULOSKELETAL: full range of motion of all her joints without pain or swelling. NEUROLOGICAL: , no headache. no vision changes, or fainting. No numbness or tingling. Vital Signs: I have reviewed the vital signs. GENERAL: Well-nourished, Well-developed , no apparent distress, cooperative Eyes: PERRL, extraoculry movements intact, clear conjunctiva Head: : Atraumatic external nose and ears, oropharyngeal mucosa is moist without lesions or exudates Neck: Symmetric, trachea midline, No thyromegaly, no masses or neck vain pulsation, no neck rigidity CVS: +S1/S2, No murmurs or gallops. Peripheral pulses 2+ and equal in all extremities. RESP: Unlabored respiratory effort. Clear to auscultation bilaterally. Abdomen: Bowel sounds present in all 4 quadrants, Soft to palpation, Nontender/ Nondistended, No hepatosplenomegaly, no hernias or masses, no CVA tnderness Musculoskeletal: Extremities w/o deformity, No cyanosis or clubbing, no joint swelling Skin: Warm, Dry. No rashes or lesions Neuro: forging die sinker II-XII grossly intact, motor strenght 5/5 i upper and lower extremities, no clonus, patellar DTRs 2+ and sympetrical Psych: Awake, Alert, & Oriented (AAO) x3 Appropriate mood and affect Patient was discharged to [facility] Recommended follow-up blood work to include CBC, CMP and HIV testing in one week Pertinent Studies: Chest CTA: 1. No evidence of pulmonary embolism 2. Bilateral peribronchial coughing in a background of mild emphysema. This could be reactive in the setting of chronic obstructive pulmonary disease or other infectious etiology such as bronchitis. No focal consolidation to suggest pneumonia 3. Hepatic stat doses, at least moderate in degree Ultrasound liver: 1. Probable fatty infiltration of the liver 2. Gallbladder sludge Pertinent laboratory data: AST 247 A LT [id number] Alkaline phosphatase 84 Total bilirubin 0.9 Alcohol level 398 Hepatitis A IgM, hepatitis B surface antigen, hepatitis B core IgM, hepatitis C IgG: all nonreactive Platelet count 85-65-76 Patient Condition at Discharge: Fair Plan - Discharge Summary Discharge Rx Participant: No New Discharge Prescriptions: New Nicotine 21Mg/24Hr Patch [Habitrol] 1 patch TRANSDERM DAILY #7 patch Discharge Medication List Nicotine 21Mg/24Hr Patch [Habitrol] 1 patch TRANSDERM DAILY #7 patch 02/02/18 [ Rx] Follow up Appointment(s)/Referral(s): None,Stated [Primary Care Provider] - 1-2 days [facility] [NON-STAFF] - 1 Week Patient Instructions/Handouts: Nicotine (Absorbed through the skin), How to Stop Smoking (DC), Alcohol Dependence (GEN) Activity/Diet/Wound Care/Special Instructions: regular diet preadmission activity level Care Plan Goals (MU): follow up with PCP to check your liver Discharge Disposition: OTHER INSTITUTION NOT DEFINED
== END 2018-02-02 09:40 | disposition home or self-care (01) | DRG 897 ==
LOC: EC 12:42 → 5MS5E 01-28 06:42 → OBSVTOIN 01-29 08:57
PROVIDERS: ADMIT Internal Medicine; ATTEND Internal Medicine
DX: F10.239 Alcohol dependence with withdrawal, unspecified (principal); R45.851 Suicidal ideations; K29.20 Alcoholic gastritis without bleeding; F17.213 Nicotine dependence, cigarettes, with withdrawal; F17.293 Nicotine dependence, other tobacco product, with withdrawal; D69.59 Other secondary thrombocytopenia; L89.219 Pressure ulcer of right hip, unspecified stage; J43.9 Emphysema, unspecified; K70.10 Alcoholic hepatitis without ascites; K76.0 Fatty (change of) liver, not elsewhere classified; R07.89 Other chest pain; F10.229 Alcohol dependence with intoxication, unspecified; F41.9 Anxiety disorder, unspecified; F32.9 Major depressive disorder, single episode, unspecified; I51.7 Cardiomegaly; K21.9 Gastro-esophageal reflux disease without esophagitis; Z71.6 Tobacco abuse counseling; Y90.8 Blood alcohol level of 240 mg/100 ml or more; Z71.41 Alcohol abuse counseling and surveillance of alcoholic; Z87.11 Personal history of peptic ulcer disease; Z63.4 Disappearance and death of family member; Z87.81 Personal history of (healed) traumatic fracture; Z59.6 Low income; Z80.1 Family history of malignant neoplasm of trachea, bronchus and lung; Z80.8 Family history of malignant neoplasm of other organs or systems; Z82.49 Family history of ischemic heart disease and other diseases of the circulatory system; Z81.1 Family history of alcohol abuse and dependence; V48.4XXA Person boarding or alighting a car injured in noncollision transport accident, initial encounter
CPT/HCPCS: 36415; 71046; 71275; 76705; 80053; 80074; 80306; 80320; 82075; 82550; 82553; 83735; 84443; 84484; 85025; 85027; 85379; 85610; 85730; 93005; 96361; 96365; 96366; 96372; 96375; 96376; 99285

== ENCOUNTER 2018-03-08 10:09 | Emergency (ER) | payer OTHER ==
[2018-03-08 10:16] VITALS: RESP 18
[2018-03-08] MEDS ORDERED: HYDROcodone/APAP 5-325MG 1 EACH TAB PO STA (10:28)
--- NOTE | 2018-03-08 10:31 | ED ---
Lower Extremity Injury HPI - General Chief Complaint: Extremity Injury, Lower Stated Complaint: left foot injury Time Seen by Provider: 03/08/18 10:19 Source: patient Mode of arrival: ambulatory Limitations: no limitations - History of Present Illness Initial Comments: 47-year-old male patient presents to the emergency department today for evaluation of left foot pain. Patient states yesterday around 4:30 in the afternoon he was up on a ladder and fell landing on his feet. Patient states he was approximately 8-10 feet up. Patient states he did not fall to the ground this occurred. Denies hitting his head or losing consciousness. Patient states that he started having some foot pain after the fall however when he woke this morning the pain was much worse. Patient states he is unable to bear weight on his heel. Patient denies any numbness or tingling to the foot. Denies any previous injuries to the foot. He denies any neck or back pain. Denies any other injuries. Patient denies any headache, chest pain, shortness of breath, dizziness, weakness, abdominal pain, nausea, vomiting, or difficulties with bowel movements or urination. - Related Data Previous Rx's Medication Instructions Recorded Nicotine 21Mg/24Hr Patch [Habitrol] 1 patch TRANSDERM DAILY #7 patch 02/02/18 Ibuprofen [Motrin] 600 mg PO Q8HR PRN #30 tab 03/08/18 Allergies Allergy/AdvReac Type Severity Reaction Status Date / Time No Known Allergies Allergy Verified 01/27/18 13:31 Review of Systems ROS Statement: Those systems with pertinent positive or pertinent negative responses have been documented in the HPI. ROS Other: All systems not noted in ROS Statement are negative. Past Medical History Past Medical History: Chest Pain / Angina, GERD/Reflux Additional Past Medical History / Comment(s): Cardiomegaly- denies to physician , ETOH abuse, gastric ulcer, arthritis bilateral legs, occasional low back pain , mononucleosis as teen. History of Any Multi-Drug Resistant Organisms: None Reported Past Surgical History: Orthopedic Surgery Additional Past Surgical History / Comment(s): EGD, R foot surgery after fracture. Past Anesthesia/Blood Transfusion Reactions: No Reported Reaction Past Psychological History: Anxiety, Depression Smoking Status: Current some day smoker Past Alcohol Use History: None Reported Past Drug Use History: None Reported - Past Family History Mother Family Medical History: Cancer Additional Family Medical History / Comment(s): Mother from lung to brain cancer Father Family Medical History: Myocardial Infarction (CO) Additional Family Medical History / Comment(s): Father of a CO at the age of 76yrs. General Exam Limitations: no limitations General appearance: alert, in no apparent distress, other (This is a well- developed, well-nourished adult male patient in no acute distress. Vital signs upon presentation are temperature 98.7F, pulse 94, respirations 18, blood pressure 141/84, pulse ox 99% on room air.) Eye exam: Present: normal appearance, PERRL, EOMI. Absent: scleral icterus, conjunctival injection, periorbital swelling ENT exam: Present: normal exam, normal oropharynx, mucous membranes moist Neck exam: Present: normal inspection, full ROM, other (Nontender, no step-off, no deformity to firm midline palpation of the posterior cervical spine. Full range of motion without pain or limitation.). Absent: tenderness, meningismus, lymphadenopathy Respiratory exam: Present: normal lung sounds bilaterally. Absent: respiratory distress, wheezes, rales, rhonchi, stridor Cardiovascular Exam: Present: regular rate, normal rhythm, normal heart sounds. Absent: systolic murmur, diastolic murmur, rubs, gallop, clicks GI/Abdominal exam: Present: soft, normal bowel sounds. Absent: distended, tenderness, guarding, rebound, rigid Extremities exam: Present: normal inspection, full ROM, tenderness (Tenderness over the heel and the fifth metatarsal on the left foot.), normal capillary refill, other (Skin to the left foot is pink, warm, and dry. Cap refills less than 3 seconds. Pedal posttibial pulses 2+ and equal bilaterally.). Absent: pedal edema, joint swelling, calf tenderness Back exam: Present: normal inspection, other (Nontender, no step-off, no deformity to firm midline palpation of the thoracic and lumbar vertebrae. Full range of motion without pain or limitation.). Absent: vertebral tenderness Neurological exam: Present: alert, oriented X3, CN II-XII intact Psychiatric exam: Present: normal affect, normal mood Skin exam: Present: warm, dry, intact, normal color. Absent: rash Course Vital Signs 03/08/18 03/08/18 10:13 11:22 Temperature 98.7 F 97.6 F Pulse Rate 94 82 Respiratory 18 18 Rate Blood Pressure 141/84 126/91 O2 Sat by Pulse 99 98 Oximetry Medical Decision Making - Medical Decision Making 47-year-old male patient presented to the emergency department today for evaluation of left foot pain after a fall from a ladder yesterday. Physical examination did reveal left heel tenderness. Foot is neurovascularly intact. Did perform x-ray of the ankle and foot which showed no acute osseous abnormalities. Did discuss findings and results with the patient, we did discuss sprain of the ankle as well as contusion to the heels a cause for his symptoms. He'll be given an ankle stirrup splint and crutches for comfort. He is instructed to have repeat imaging performed in 7-10 days if his symptoms are not improved. Patient is establishing care with the primary care physician however he does not see them until March 22. Did provide orthopedic follow-up if necessary. He is given a prescription for ibuprofen. He was instructed to rest, ice, and elevate the extremity. Return parameters were discussed in detail. He verbalizes understanding and agrees with this plan. - Radiology Data Radiology results: report reviewed, image reviewed 3 views of the left foot are obtained. The osseous structures are intact. There is no acute fracture or dislocation. Arthropathy of the first MTP joint. There is plantar calcaneal spur. Impression by Dr. lewis shows no acute fracture or dislocation. If symptoms persist, follow-up exam in 7-10 days could be obtained. 3 views of the left ankle are obtained. The ankle mortise is intact and symmetric. The joint spaces are preserved. The osseous structures are intact. Calcaneal spurs are noted. Impression by Dr. lewis shows no definite acute fracture dislocation. Calcaneal spurs. Disposition Clinical Impression: Ankle sprain, Contusion of heel Disposition: HOME SELF-CARE Condition: Good Instructions: Ankle Sprain (ED), Foot Contusion (ED) Additional Instructions: Rest, ice, and elevate the foot. Use crutches as needed. If pain symptoms persist follow-up with your primary care physician to discuss computed tomography (CT) scan of the foot. Take medications as directed for pain relief. Rest as much as possible. Return here immediately for any new, worsening, or concerning symptoms. Prescriptions: Ibuprofen [Motrin] 600 mg PO Q8HR PRN #30 tab PRN Reason: Pain Is patient prescribed a controlled substance at d/c from ED?: No Referrals: Lonnie Marks DO [Doctor of Osteopathic Medicine] - 1-2 days Time of Disposition: 11:31
--- NOTE | 2018-03-08 11:15 | XR ---
EXAMINATION TYPE: XR ankle complete LT DATE OF EXAM: 03/08/2018 COMPARISON: NONE HISTORY: Pain FINDINGS: Three views of the ankle demonstrate the ankle mortise to be intact and symmetric. The joint spaces are preserved. The osseous structures are intact. Calcaneal spurs are noted. IMPRESSION: 1. No definite acute fracture or dislocation, if symptoms persist follow-up study in 7 to 10 days wou ld be suggested. 2. Calcaneal spurs.
--- NOTE | 2018-03-08 11:17 | XR ---
EXAMINATION TYPE: XR foot complete LT DATE OF EXAM: 03/08/2018 COMPARISON: NONE HISTORY: Pain TECHNIQUE: Three views are submitted. FINDINGS: The osseous structures are intact. There is no acute fracture or dislocation. Arthropathy of the f irst MTP joint. There is a plantar calcaneal spur. IMPRESSION: 1. No acute fracture or dislocation. If symptoms persist, follow-up exam in 7 to 10 days could be ob tained.
[2018-03-08 11:22] VITALS: TEMP 97.6
[2018-03-08 11:59] VITALS: BP 137/77; PULSE 77
== END 2018-03-08 11:57 | disposition home or self-care (01) ==
LOC: EC 10:09
DX: S93.402A Sprain of unspecified ligament of left ankle, initial encounter (principal); S90.32XA Contusion of left foot, initial encounter; F17.200 Nicotine dependence, unspecified, uncomplicated; W11.XXXA Fall on and from ladder, initial encounter; Y92.009 Unspecified place in unspecified non-institutional (private) residence as the place of occurrence of the external cause
CPT/HCPCS: 29515; 99283